=== PATIENT | male | born 1955 | race Caucasian/White ===

== ENCOUNTER 2017-08-14 19:19 | Emergency (ER) | payer BC ==
[~2017-08-14] VITALS: Ht 182.9 cm; Wt 90.7 kg
[2017-08-14] MEDS ORDERED: TETANUS,DIPTH,PERTUSS P/F (BOOSTRIX) 0.5 ML VIAL IM STA (21:36)
[2017-08-14] MEDS ORDERED: CEPHALEXIN 250 MG (KEFLEX) CAP PO STA (22:28)
[2017-08-14] MEDS ORDERED: CEPH500T PO (22:36)
--- NOTE | 2017-08-14 22:36 | ED Upper Extremity ---
General Chief Complaint: Laceration Stated Complaint: RT HAND POINTER FINGER INJ Nursing Triage Note: PT TO ED 3 W/ C/O INJURY TO 1ST FINGER RT HAND ONSET THIS AM. REPORTS WAS WORKING ON HIS TRUCK AT ONSET Nursing Sepsis Screen: No Definite Risk Source: patient Exam Limitations: no limitations History of Present Illness Date Seen by Provider: Aug 14, 2017 Time Seen by Provider: 21:30 Initial Comments Bracket on it. This breath and sweating around and caught his finger and caused a laceration to the palmar surface at the tip over the pad. Proximally 2 cm superficial and macerated. Occurred at 11 a.m. today. Denies other injury. Tetanus is not up-to-date. Onset: this morning Severity: moderate Pain/Injury Location: right 2nd finger Method of Injury: direct blow, incised Modifying Factors: Improves With Immobilization, Worse With Movement Allergies and Home Medications Allergies Coded Allergies: No Known Drug Allergies (Unverified , 08/14/17) Patient Home Medication List Home Medication List Reviewed: Yes Constitutional: see HPI, No chills, No fever Respiratory: no symptoms reported Cardiovascular: no symptoms reported Musculoskeletal: see HPI, No joint pain, muscle pain Skin: No change in color, lesions Psychiatric/Neurological: No Symptoms Reported Past Xsjwbbe-Gwtlhp-Xzkrfo Hx Patient Social History Alcohol Use: Occasionally Uses Alcohol Beverage of Choice: Beer Recreational Drug Use: No Smoking Status: Current Everyday Smoker Type Used: Cigarettes 2nd Hand Smoke Exposure: Yes Recent Foreign Travel: No Contact w/Someone Who Travel: No Recent Infectious Disease Expo: No Recent Hopitalizations: No Physical Abuse: No Sexual Abuse: No Mistreated: No Fear: No Surgeries History of Surgeries: No Respiratory History of Respiratory Disorde: No Cardiovascular History of Cardiac Disorders: No Neurological History of Neurological Disord: No Genitourinary History of Genitourinary Disor: No Gastrointestinal History of Gastrointestinal Di: No Musculoskeletal History of Musculoskeletal Dis: No Endocrine History of Endocrine Disorders: No HEENT History of HEENT Disorders: No Cancer History of Cancer: No Psychosocial History of Psychiatric Problem: No Suicide Risk Score: 0 Integumentary History of Skin or Integumenta: No Blood Transfusions History of Blood Disorders: No Reviewed Nursing Assessment Reviewed/Agree w Nursing PMH: Yes Family Medical History Significant Family History: No Pertinent Family Hx Physical Exam Vital Signs Vital Signs - First Documented 08/14/17 20:27 Temp 98.2 Pulse 85 Resp 18 B/P (MAP) 124/83 (97) Pulse Ox 99 O2 Delivery Room Air Capillary Refill : Less Than 3 Seconds General Appearance: WD/WN, no apparent distress Cardiovascular: regular rate, rhythm, no murmur Respiratory: lungs clear, normal breath sounds Hand: Right, laceration, soft tissue tenderness Skin: normal color, warm/dry, other (2 similar laceration to the pad of the right index finger irregular shaped and mostly superficial but does go through full thickness of the callus and skin. Distal sensation and circulation intact. ) Progress/Results/Core Measures Results/Orders My Orders Orders - LIZZY PALOMO MD Dipht,Pertuss(Acell),Tet Adult (Boostrix (08/14/17 21:36) Cephalexin Capsule (Keflex Capsule) (08/14/17 22:28) Vital Signs/I&O Vital Sign - Last 12Hours 08/14/17 20:27 Temp 98.2 Pulse 85 Resp 18 B/P (MAP) 124/83 (97) Pulse Ox 99 O2 Delivery Room Air Blood Pressure Mean: 97 Progress Note : Progress Note Seen and evaluated. Wound soaked and cleaned. Covered with antibiotic ointment and dressing. Tetanus updated. Discharge home with return precautions. Patient verbalize understanding instructions and agreement with plan. Departure Impression Impression: Primary Impression: Laceration of right index finger Qualified Codes: S61.210A - Laceration without foreign body of right index finger without damage to nail, initial encounter Disposition: 01 HOME, SELF-CARE Condition: Improved Departure-Patient Inst. Decision time for Depature: 22:35 Referrals: YEVGENIY SANTOS (PCP/Family) Primary Care Physician Patient Instructions: SKIN AVULSION Add. Discharge Instructions: All discharge instructions reviewed with patient and/or family. Voiced understanding. Take medications as directed. Follow-up with your DrNat in a few days for recheck. Keep dressing in place for 2 days and then you may remove period gently rinse wound and UA clean with mild soap and water. Recover with antibiotic ointment and dressing. Change the dressing then twice daily for the next several days and then as needed thereafter. Keep wound clean and dry. Take antibiotics as directed. Return for worsening, fever, vomiting, weakness, breathing problems or other concerns as needed. Scripts Cephalexin (Cephalexin) 500 Mg Tablet 500 MG PO QID, #20 TAB 0 Refills Prov: LIZZY PALOMO MD 08/14/17 LIZZY PALOMO MD Aug 14, 2017 22:36
[2017-08-14 22:37] VITALS: BP 126/89
== END 2017-08-14 22:37 | disposition home or self-care (01) ==
LOC: EDUNIT# 19:19 → ER 19:21
DX: S61.210A Laceration without foreign body of right index finger without damage to nail, initial encounter (principal); F17.210 Nicotine dependence, cigarettes, uncomplicated; Z23 Encounter for immunization; W22.8XXA Striking against or struck by other objects, initial encounter
CPT/HCPCS: 90471; 90715; 99284

== ENCOUNTER 2017-10-08 01:42 | Emergency (ER) | payer BC ==
[~2017-10-08] VITALS: Ht 182.9 cm; Wt 90.7 kg
[~2017-10-08 01:42] MED LIST: CEPH500T PO
--- NOTE | 2017-10-08 01:59 | ED Chest Pain ---
General Stated Complaint: SOB Source: patient Exam Limitations: no limitations History of Present Illness Date Seen by Provider: October 08, 2017 Time Seen by Provider: 01:49 Initial Comments The patient presents to the ER by private conveyance with a chief complaint of chest pain is been going on for the last 1-2 days. He says intermittent last for about an hour or 2. The chest pain is bilateral and does not radiate anywhere. It is not made worse by deep inspiration but it is by pressing on the chest. He is not having any cough, wheezing. He does smoke about 1-2 packs per day but has no history of COPD, asthma or recent pneumonia. He does not follow with a primary care doctor so he does not know if he has diabetes, hypertension , hypercholesterolemia, hypothyroidism. He says he's had no prior heart history nor does he have any primary family with heart history before the age of 50. He says he felt some chills but no documented fever lately. He is not having any abdominal pain, nausea, sweats, rash. He does not have any known medical history nor does he take any medicines. He has not tried anything for it tonight. Pain is 6-7 out of 10. Allergies and Home Medications Allergies Coded Allergies: No Known Drug Allergies (Unverified , 08/14/17) Home Medications Cephalexin 500 Mg Tablet, 500 MG PO QID Prescribed by: LIZZY PALOMO on 08/14/17 [id number] Patient Home Medication List Home Medication List Reviewed: Yes Review of Systems Constitutional: chills; No diaphoresis, No fever, No malaise EENTM: No Blurred Vision, No Double Vision Respiratory: Denies Cough; Shortness of Air; Denies Wheezing Cardiovascular: See HPI, Chest Pain; Denies Edema, Denies Irregular Heart Rate , Denies Lightheadedness, Denies Palpitations, Denies Syncope Gastrointestinal: Denies Abdominal Pain, Denies Constipated, Denies Diarrhea, Denies Nausea Genitourinary: Denies Burning, Denies Discharge Musculoskeletal: No back pain, No joint pain Skin: No pruritus, No rash Psychiatric/Neurological: Denies Headache, Denies Numbness, Denies Paresthesia Past Zaqmfjy-Spsldf-Cjqgpm Hx Patient Social History Alcohol Use: Regular Use Alcohol Beverage of Choice: Beer (1-2 beers a night) Recreational Drug Use: No Smoking Status: Current Everyday Smoker Type Used: Cigarettes (1-2 pack per day) 2nd Hand Smoke Exposure: Yes Recent Foreign Travel: No Contact w/Someone Who Travel: No Recent Hopitalizations: No Past Medical History Surgeries: No Respiratory: No Cardiac: No Neurological: No Genitourinary: No Gastrointestinal: No Musculoskeletal: No Endocrine: No HEENT: No Cancer: No Psychosocial: No Integumentary: No Blood Disorders: No Family Medical History No Pertinent Family Hx Physical Exam Vital Signs Vital Signs - First Documented Capillary Refill : General Appearance: No Apparent Distress, WD/WN HEENT: PERRL/EOMI, Normal ENT Inspection, Pharynx Normal Neck: Normal Inspection, Non Tender Respiratory: Lungs Clear, Normal Breath Sounds, No Accessory Muscle Use, No Respiratory Distress, Other (direct palpation of anterior chest wall re-creates the chest pain.) Cardiovascular: Regular Rate, Rhythm, No Edema, No Gallop, No JVD, No Murmur, Normal Peripheral Pulses Gastrointestinal: Normal Bowel Sounds, Non Tender, Soft Extremity: Normal Capillary Refill, Non Tender, No Pedal Edema Neurologic/Psychiatric: Alert, Oriented x3 Skin: Normal Color, Warm/Dry Progress/Results/Core Measures Results/Orders Lab Results Laboratory Tests Test 10/08/17 02:04 10/08/17 02:20 Range/Units White Blood Count 9.1 4.3-11.0 10^3/uL Red Blood Count 4.97 4.35-5.85 10^6/uL Hemoglobin 15.8 13.3-17.7 G/DL Hematocrit 46 40-54 % Mean Corpuscular Volume 92 80-99 FL Mean Corpuscular Hemoglobin 32 25-34 PG Mean Corpuscular Hemoglobin Concent 34 32-36 G/DL Red Cell Distribution Width 13.7 10.0-14.5 % Platelet Count 210 130-400 10^3/uL Mean Platelet Volume 10.5 H 7.4-10.4 FL Neutrophils (%) (Auto) 68 42-75 % Lymphocytes (%) (Auto) 21 12-44 % Monocytes (%) (Auto) 9 0-12 % Eosinophils (%) (Auto) 2 0-10 % Basophils (%) (Auto) 0 0-10 % Neutrophils # (Auto) 6.1 1.8-7.8 X 10^3 Lymphocytes # (Auto) 1.9 1.0-4.0 X 10^3 Monocytes # (Auto) 0.8 0.0-1.0 X 10^3 Eosinophils # (Auto) 0.2 0.0-0.3 10^3/uL Basophils # (Auto) 0.0 0.0-0.1 10^3/uL Prothrombin Time 13.2 12.2-14.7 SEC INR Comment 1.0 0.8-1.4 Activated Partial Thromboplast Time 26 24-35 SEC Sodium Level 140 135-145 MMOL/L Potassium Level 3.9 3.6-5.0 MMOL/L Chloride Level 109 H 98-107 MMOL/L Carbon Dioxide Level 21 21-32 MMOL/L Anion Gap 10 5-14 MMOL/L Blood Urea Nitrogen 10 7-18 MG/DL Creatinine 0.94 0.60-1.30 MG/DL Estimat Glomerular Filtration Rate > 60 BUN/Creatinine Ratio 11 Glucose Level 118 H 70-105 MG/DL Calcium Level 9.0 8.5-10.1 MG/DL Magnesium Level 2.4 1.8-2.4 MG/DL Total Bilirubin 0.3 0.1-1.0 MG/DL Aspartate Amino Transf (AST/SGOT) 15 5-34 U/L Alanine Aminotransferase (ALT/SGPT) 17 0-55 U/L Alkaline Phosphatase 75 40-136 U/L Myoglobin 26.8 10.0-92.0 NG/ML Troponin I < 0.30 <0.30 NG/ML Total Protein 7.0 6.4-8.2 GM/DL Albumin 4.0 3.2-4.5 GM/DL Serum Alcohol < 10 <10 MG/DL Urine Opiates Screen NEGATIVE NEGATIVE Urine Oxycodone Screen NEGATIVE NEGATIVE Urine Methadone Screen NEGATIVE NEGATIVE Urine Propoxyphene Screen NEGATIVE NEGATIVE Urine Barbiturates Screen NEGATIVE NEGATIVE Ur Tricyclic Antidepressants Screen NEGATIVE NEGATIVE Urine Phencyclidine Screen NEGATIVE NEGATIVE Urine Amphetamines Screen NEGATIVE NEGATIVE Urine Methamphetamines Screen NEGATIVE NEGATIVE Urine Benzodiazepines Screen NEGATIVE NEGATIVE Urine Cocaine Screen NEGATIVE NEGATIVE Urine Cannabinoids Screen NEGATIVE NEGATIVE My Orders Orders - WEI ISABEL Cbc With Automated Diff (10/08/17 01:52) Magnesium (10/08/17 01:52) Ekg Tracing (10/08/17 01:52) Cardiac Profile 1 (10/08/17 01:52) Comprehensive Metabolic Panel (10/08/17 01:52) Myoglobin Serum (10/08/17 01:52) Protime With Inr (10/08/17 01:52) Partial Thromboplastin Time (10/08/17 01:52) O2 (10/08/17 01:52) Monitor-Rhythm Ecg Trace Only (10/08/17 01:52) Lipid Panel (10/09/17 06:00) Aspirin Chewable Tablet (Baby Aspirin Ch (10/08/17 02:00) Nitroglycerin 0.4 Mg Btl 25's (Nitrostat (10/08/17 02:00) Saline Lock/Iv-Start (10/08/17 01:52) Chest Pa/Lat (2 View) (10/08/17 01:52) Alcohol (10/08/17 01:52) Drug Screen Stat (Urine) (10/08/17 01:52) Medications Given in ED Current Medications Medications Dose Ordered Sig/Keyla Route Start Time Stop Time Status Last Admin Dose Admin Aspirin 324 mg ONCE ONCE PO 10/08/17 02:00 10/08/17 02:01 DC 10/08/17 02:09 324 MG Nitroglycerin 0.4 mg UD PRN SL 10/08/17 02:00 10/08/17 02:10 0.4 MG Vital Signs/I&O 10/08/17 10/08/17 01:47 01:47 Temp 96.7 Pulse 79 Resp 14 B/P (MAP) 173/109 (130) Pulse Ox 98 O2 Delivery Room Air Room Air Progress Progress Note #1: Time: 01:58 Progress Note Chest wall pain could be consistent with costochondritis, pneumonia, bronchitis , pericarditis, pleurisy, but Less likely coronary artery disease. He is not having a productive cough, hypoxia or any history to suggest pulmonary embolism. No evidence of a DVT. We'll give him some aspirin and nitroglycerin since his blood pressure is 170 systolic and his chest pain is present about a 6 -7 out of 10 right now. We'll obtain some blood work and at 2 view chest x-ray. ED ACS 8 points; If the patient also has: (1) EKG without new ischemic changes and (2) negative initial and 2-hour troponins, then this patient is safe for discharge to early outpatient follow-up investigation (or proceed to earlier inpatient testing). If EKG with ischemic changes or positive troponin, they are not low risk and require normal risk stratification. Progress Note #2: Time: 03:05 Progress Note Elke a day and a half now he's been having these pains and still has no troponin or EKG changes. It's unlikely to be coronary related. His chest wall pain is most likely costochondritis. There is no evidence of pneumonia and he certainly doesn't have a cough to make me think bronchitis either so we'll put him on a short course of steroids since he does have a very high likelihood of COPD given his smoking history of one to 2 packs per day. We'll also put him on some NSAIDs and have him follow-up/establish care with a primary care doctor in the next 1-2 weeks. Initial ECG Impression Date: October 08, 2017 Initial ECG Impression Time: 01:55 Initial ECG Rate: 70 Initial ECG Rhythm: Normal Sinus Initial ECG Intervals: Normal Initial ECG Impression: Normal Initial ECG Comparisson: No Previous ECG Available Comment No ST elevation or depression. Diagnostic Imaging Diagonstic Imaging: Xray Plain Films/CT/US/NM/MRI: chest (2v) Comments No acute pulmonary infiltrate. No acute cardiopulmonary process noted. Reviewed: Reviewed by Me Departure Impression Primary Impression: Costochondritis, acute Disposition: 01 HOME, SELF-CARE Condition: Stable Departure-Patient Inst. Decision time for Depature: 03:07 Referrals: NO,LOCAL PHYSICIAN (PCP) Primary Care Physician YEVGENIY SANTOS (Family) Primary Care Physician Patient Instructions: Costochondritis (DC), LOCAL PHYSICIAN LIST Add. Discharge Instructions: Drink plenty of fluids, use ibuprofen 800 mg every 8 hours or Naprosyn/Aleve 2 capsules twice a day for the next 2 weeks. You can also use Tylenol 1000 mg every 8 hours as needed for breakthrough pain. You can use muscle rub such as Biofreeze or icy hot. auto rental supervisor the prednisone and take 2 tablets daily for the next 5 days to help calm down the inflammation in her chest wall. Establish care with a primary care provider for follow-up and help you decide whether there is any risk for heart disease or COPD related to your long-standing history of smoking. Scripts Prednisone (Prednisone) 20 Mg Tab 40 MG PO DAILY for 5 Days, #10 TAB 0 Refills Prov: WEI ISABEL 10/08/17 Work/School Note: Work Release Form Date Seen in the Emergency Department: October 08, 2017 Return to Work: October 09, 2017 Restrictions: No Restrictions WEI ISABEL October 08, 2017 01:59
[2017-10-08] MEDS: ASPIRIN 81 MG CHEW (CHILDREN'S ASA) PO ONE (02:09)
[2017-10-08 02:10] LABS: BASOPHILS % (AUTO) 0 % (0-10); EOSINOPHILS # (AUTO) 0.2 10^3/uL (0.0-0.3); EOSINOPHILS % (AUTO) 2 % (0-10); HEMATOCRIT 46 % (40-54); HEMOGLOBIN 15.8 G/DL (13.3-17.7); LYMPHOCYTES # (AUTO) 1.9 X 10^3 (1.0-4.0); LYMPHOCYTES % (AUTO) 21 % (12-44); MEAN CORPUSCULAR HEMOGLOBIN 32 PG (25-34); MEAN CORPUSCULAR HGB CONC 34 G/DL (32-36); MEAN CORPUSCULAR VOLUME 92 FL (80-99); MEAN PLATELET VOLUME 10.5 FL (7.4-10.4); MONOCYTES # (AUTO) 0.8 X 10^3 (0.0-1.0); MONOCYTES % (AUTO) 9 % (0-12); NEUTROPHILS # (AUTO) 6.1 X 10^3 (1.8-7.8); NEUTROPHILS % (AUTO) 68 % (42-75); PLATELET COUNT 210 10^3/uL (130-400); RED BLOOD COUNT 4.97 10^6/uL (4.35-5.85); RED CELL DISTRIBUTION WIDTH 13.7 % (10.0-14.5); WHITE BLOOD COUNT 9.1 10^3/uL (4.3-11.0)
[2017-10-08] MEDS: NITROGLYCERIN 0.4 MG SL TABS BTL 25'S SL PRN (02:10)
[2017-10-08 02:26] LABS: PROTHROMBIN TIME PATIENT 13.2 SEC (12.2-14.7)
[2017-10-08 02:38] LABS: ALANINE AMINOTRANSFERASE 17 U/L (0-55); ALKALINE PHOSPHATASE 75 U/L (40-136); BILIRUBIN,TOTAL 0.3 MG/DL (0.1-1.0); BUN/CREATININE RATIO 11; CARBON DIOXIDE 21 MMOL/L (21-32); CHLORIDE 109 MMOL/L (98-107); CREATININE SERUM 0.94 MG/DL (0.60-1.30); GFR ESTIMATED > 60; GLUCOSE 118 MG/DL (70-105); MAGNESIUM 2.4 MG/DL (1.8-2.4); POTASSIUM 3.9 MMOL/L (3.6-5.0); SODIUM 140 MMOL/L (135-145)
[2017-10-08 02:43] LABS: AMPHETAMINE SCREEN, URINE NEGATIVE (NEGATIVE); BARBITURATE SCREEN URINE NEGATIVE (NEGATIVE); BENZODIAZEPINES SCREEN URINE NEGATIVE (NEGATIVE); CANNABINOID SCREEN, URINE NEGATIVE (NEGATIVE); COCAINE SCREEN URINE NEGATIVE (NEGATIVE); METHADONE STAT NEGATIVE (NEGATIVE); METHAMPHETAMINE SCREEN URINE S NEGATIVE (NEGATIVE); OPIATE SCREEN URINE NEGATIVE (NEGATIVE); OXYCODONE STAT NEGATIVE (NEGATIVE); PROPOXYPHENE STAT NEGATIVE (NEGATIVE); TRICYCLIC ANTIDEPRESSANTS SCRE NEGATIVE (NEGATIVE)
[2017-10-08 02:45] LABS: MYOGLOBIN SERUM 26.8 NG/ML (10.0-92.0)
[2017-10-08] MEDS ORDERED: PRD20T PO (03:19)
[2017-10-08 03:26] VITALS: BP 127/78
--- NOTE | 2017-10-08 05:59 | Diagnostic Imaging Report ---
INDICATION: Cough and congestion COMPARISON: None FINDINGS: Frontal and lateral views of the chest demonstrate normal heart size and pulmonary vascularity. The lungs are clear. There are no signs of infiltrate, pleural effusions or pneumothoraces. The visualized osseous structures show no acute abnormalities. IMPRESSION: 1. No acute process. No signs of infiltrates, effusions or pneumothoraces. Dictated by: Dictated on workstation # [id number]
== END 2017-10-08 03:26 | disposition home or self-care (01) ==
LOC: EDUNIT# 01:42 → ER 01:45
DX: M94.0 Chondrocostal junction syndrome [Tietze] (principal); F17.210 Nicotine dependence, cigarettes, uncomplicated
CPT/HCPCS: 36415; 71046; 80053; 80306; 80320; 83735; 83874; 84484; 85025; 85610; 85730; 93005; 93041

== ENCOUNTER 2021-05-14 05:30 | Outpatient (CLI) | payer BC ==
[~2021-05-14] VITALS: Ht 188 cm; Wt 99.8 kg
[~2021-05-14 05:30] MED LIST changes: +PRD20T PO
[2021-05-15] MEDS ORDERED: LISI10TA25 PO (09:20)
== END 2021-05-15 13:30 | disposition home or self-care (01) ==
LOC: PREOP 05:30
PROVIDERS: ATTEND Internal Medicine
DX: Z01.818 Encounter for other preprocedural examination (principal)

== ENCOUNTER 2021-06-06 07:16 | Day surgery (SDC) | payer BC ==
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
[~2021-06-06] VITALS: Ht 188 cm; Wt 99.8 kg
[~2021-06-06 07:16] MED LIST changes: +LISI10TA25 PO
[2021-06-06] MEDS ORDERED: LACTATED RINGERS 1,000 ML IV ONE (07:41)
[2021-06-06] MEDS ORDERED: LACTATED RINGERS 1,000 ML IV STA (07:45)
[2021-06-06] MEDS ORDERED: LIDOCAINE JELLY 2% 6 ML SYRINGE MM PRN (07:45)
[2021-06-06 07:58] VITALS: BP 151/96
--- NOTE | 2021-06-06 08:04 | Pre-Op Note & Conscious Sedat ---
Pre-Operative Progress Note H&P Reviewed The H&P was reviewed, patient examined and no changes noted. Date H&P Reviewed: Jun 06, 2021 Time H&P Reviewed: 08:04 Conscious Sedation Pre-Proced ASA Score 2 For ASA 3 and 4: Consider anesthesia and medical clearance. Also, for patients with a history of failed moderate sedation consider anesthesia. Airway Lungs Heart ASA score ASA 1: a normal healthy patient ASA 2: a patient with a mild systemic disease (mid diabetes, controlled hypertension, obesity ASA 3: a patient with a severe systemic disease that limits activity (angina, COPD, prior Myocardial infarction) ASA 4: a patient with an incapacitating disease that is a constant threat to life (CHF, renal failure) ASA 5: a moribund patient not expected to survive 24 hrs. (ruptured aneurysm) ASA 6: a declared brain- patient whose organs are being harvested. For emergent operations, add the letter E after the classification Mallampati Classification Grade 2 Sedation Plan Analgesia, Amnesia, Plan communicated to team members, Discussed options with patient/fam, Discussed risks with patient/fam The patient is an appropriate candidate to undergo the planned procedure, sedation, and anesthesia. The patient immediately re-assessed prior to indication. ANGELES XAVIER MD Jun 06, 2021 08:04
[2021-06-06] MEDS ORDERED: PROPOFOL INJECTION 50 ML IV ONE (08:07)
[2021-06-06] MEDS ORDERED: proPOfol 200 MG/20 ML (DIPRIVAN) VIAL IV ONE (08:52)
--- NOTE | 2021-06-06 08:57 | Anesthesia-General Post-Op ---
MAC Patient Condition Mental Status/LOC: Same as Preop Cardiovascular: Satisfactory Nausea/Vomiting: Absent Respiratory: Satisfactory Pain: Controlled Complications: Absent Post Op Complications Complications None Follow Up Care/Instructions Patient Instructions None needed. Anesthesiology Discharge Order Discharge Order Patient is doing well, no complaints, stable vital signs, no apparent adverse anesthesia problems. No complications reported per nursing. LAINA COPE CRNA Jun 06, 2021 08:57
[2021-06-06 09:00] VITALS: BP 114/69
[2021-06-06 09:05] VITALS: BP 119/74
[2021-06-06 09:35] VITALS: BP 136/90
[2021-06-06 09:39] VITALS: BP 136/90
--- NOTE | 2021-06-06 12:40 | OPERATIVE REPORT ---
DATE OF SERVICE: COLONOSCOPY SUMMARY INDICATION FOR PROCEDURE: Screening. REFERRING PROVIDER: KJ Olivas. DESCRIPTION OF PROCEDURE: The patient was placed in the left lateral decubitus position. Prior to undergoing colonoscopy, a digital rectal evaluation was performed. Anal sphincter tone was normal and the perianal reflexes intact. Prostate is mildly enlarged, anodular and nontender to digital inspection. No abnormalities were noted on digital inspection of the anal canal or distal rectal vault. The colonoscope was inserted into the rectum and under direct visualization advanced to the cecum. The cecum was identified by identification of the ileocecal valve and cecal strap. Photographic documentation was obtained. The quality of the prep was fair. FINDINGS: There was no evidence for internal or external hemorrhoids. Present in the rectosigmoid junction was a diminutive 4 mm sessile inflammatory appearing polyp. It was photographed and biopsied and ablated with minimal blood loss. This was performed via hot forceps. Several small to medium size sigmoid diverticulum were present as well as one moderate size mid ascending diverticulum with a fecalith, but no underlying evidence for diverticulitis. No other sigmoid colonic abnormalities were appreciated. The descending colon was unremarkable. Present in the distal transverse colon was a diminutive 2 to 3 mm sessile polyp was photographed, biopsied and ablated with no subsequent blood loss. The remainder of the transverse colon and hepatic flexure were unremarkable. No evidence for neoplasia was identified in the ascending colon or cecum. ASSESSMENT: We will await histopathology report before making recommendation for future screening colonoscopy based on the removal of two polyps as noted above via hot forceps. Digital rectal evaluation of the prostate was compatible with mild BPH. Mild diverticular disease confined to the sigmoid colon as well as one moderate size ascending colonic diverticulum with a fecalith were noted, but no underlying evidence for diverticulitis. Job ID: [id number] DocumentID: [id number] Dictated Date: 06/06/2021 08:58:06 Applied Marine Physics Professor Date: 06/06/2021 12:39:37 Dictated By: ANGELES XAVIER MD
== END 2021-06-06 09:55 | disposition home or self-care (01) ==
LOC: ENDO 07:16
PROVIDERS: ATTEND Internal Medicine
DX: Z12.11 Encounter for screening for malignant neoplasm of colon (principal); D12.3 Benign neoplasm of transverse colon; K62.1 Rectal polyp; K57.30 Diverticulosis of large intestine without perforation or abscess without bleeding; K56.41 Fecal impaction; N40.0 Benign prostatic hyperplasia without lower urinary tract symptoms; I10 Essential (primary) hypertension; F17.210 Nicotine dependence, cigarettes, uncomplicated; Z80.42 Family history of malignant neoplasm of prostate